=== PATIENT | male | born 1965 | race Caucasian/White ===

== ENCOUNTER 2024-07-30 10:36 | Inpatient (IN) | payer OTHER ==
[~2024-07-30] VITALS: Ht 170.2 cm; Wt 52.3 kg
[~2024-07-30 10:36] MED LIST: AMIN30LI66 GT; MULT9LIQ9 GT; VIT500LI GT
[2024-07-30 11:13] LABS: BASOPHILS % (AUTO) 0.2 % (0.0-2.0); EOSINOPHILS % (AUTO) 0.4 % (0.0-6.0); HEMATOCRIT 33 % (39-51); HEMOGLOBIN 11.4 g/dL (13.5-17.5); LYMPHOCYTES # (AUTO) 1.6 K/uL (0.8-4.8); LYMPHOCYTES % (AUTO) 27.2 % (20.0-44.0); MEAN CORPUSCULAR HEMOGLOBIN 33 PG (26.0-33.0); MEAN CORPUSCULAR HGB CONC 35 g/dl (31.0-36.0); MEAN CORPUSCULAR VOLUME 96 fL (80-96); MONOCYTES # (AUTO) 0.4 K/uL (0.1-1.30); MONOCYTES % (AUTO) 6.4 % (2.0-12.0); NEUTROPHILS # (AUTO) 3.8 K/uL (1.8-8.9); NEUTROPHILS % (AUTO) 65.8 % (43.0-81.0); PLATELET COUNT (AUTO) 162 K/uL (150-450); RED BLOOD CELL COUNT(AUTO) 3.45 MIL/uL (4.5-6.0); RED CELL DISTRIBUTION WIDTH 13.3 % (11.5-15.0); WHITE BLOOD COUNT (AUTO) 5.8 K/uL (4.3-11.0)
[2024-07-30 11:15] LABS: CALCIUM, SERUM 10.2 mg/dL (8.5-10.1); CREATININE 0.6 mg/dL (0.6-1.3); POTASSIUM 4.4 mmol/L (3.5-5.1)
[2024-07-30 11:29] LABS: INR 1.14 (0.91-1.10); PARTIAL THROMBOPLASTIN TIME 26.8 SEC (24.3-34.3)
[2024-07-30] MEDS ORDERED: Z GUARD REMEDY 4 OZ OINT TP PRN (13:30)
[2024-07-30] MEDS ORDERED: ACETAMINOPHEN 325 MG TABLET PO PRN (13:30)
[2024-07-30] MEDS ORDERED: MAGNESIUM HYDROXIDE 30 ML UDC PO PRN (13:30)
[2024-07-30] MEDS ORDERED: MAG HYDROX/AL HYDROX/SIMETH 30 ML UDC PO PRN (13:30)
[2024-07-30] MEDS ORDERED: ONDANSETRON HCL/PF 4 MG/2 ML VIAL IVP PRN (13:30)
[2024-07-30] MEDS ORDERED: LEVE500S9 GT (13:55)
[2024-07-30] MEDS ORDERED: ALBU2.5V38 NEB ×2 (13:55)
[2024-07-30] MEDS ORDERED: BISA10SU11 RC (13:55)
[2024-07-30] MEDS ORDERED: MAGN400O6 GT (13:55)
[2024-07-30] MEDS ORDERED: NUTR250L58 GT (13:55)
[2024-07-30] MEDS ORDERED: SENN8.6T19 GT (13:55)
[2024-07-30] MEDS ORDERED: POLY15DR31 EACHEYE (13:55)
[2024-07-30] MEDS ORDERED: ACET160S GT (13:55)
[2024-07-30] MEDS ORDERED: DOCU100C36 GT (13:55)
[2024-07-30] MEDS ORDERED: CHLO473M5 PO (13:55)
[2024-07-30] MEDS ORDERED: LORA-258 GT (13:55)
[2024-07-30] MEDS ORDERED: ACET160L44 GT (13:55)
[2024-07-30] MEDS ORDERED: PANT40SU2 GT (13:55)
[2024-07-30] MEDS ORDERED: HYDR-4303 GT (13:55)
[2024-07-30] MEDS ORDERED: QUET100T GT (13:55)
[2024-07-30] MEDS: VITAL AF 1.2 1,000 ML BOTTLE GT PRN (15:37)
[2024-07-30 15:45] VITALS: BP 114/63; TEMP 98.7; O2SAT 95
[2024-07-30] MEDS ORDERED: BISACODYL SUPP (10 MG) 10 MG/SUPP.RECT SUPP.RECT RC PRN (19:30)
[2024-07-30] MEDS ORDERED: DOCUSATE SODIUM 100 MG CAPSULE PO SCH (19:30)
[2024-07-30] MEDS ORDERED: POLYVINYL ALCOHOL 15 ML BOTTLE EACHEYE PRN (19:30)
[2024-07-30] MEDS ORDERED: ACETAMINOPHEN 650 MG/20.3 ML UDC GT PRN ×3 (19:30→20:00)
[2024-07-30] MEDS ORDERED: LORAZEPAM 0.5 MG TABLET GT PRN (19:30)
[2024-07-30] MEDS ORDERED: HYDROCODONE/APAP 5/325MG TABLET GT PRN (19:30)
[2024-07-30] MEDS ORDERED: MAG HYDROX/AL HYDROX/SIMETH 30 ML UDC GT PRN (19:32)
[2024-07-30] MEDS ORDERED: MAGNESIUM HYDROXIDE 30 ML UDC GT PRN (19:32)
[2024-07-30] MEDS: LEVETIRACETAM SOL (5 ML) 100 MG/ML UDC GT SCH (19:53)
[2024-07-30] MEDS: ASCORBIC ACID 500 MG TABLET GT SCH (19:53)
[2024-07-30] MEDS: MULTIVIT W/MINERALS 1 TAB TABLET GT SCH (19:53)
[2024-07-30] MEDS: ALBUTEROL FS 2.5 MG/3 ML VIAL.NEB NEB SCH (19:55)
[2024-07-30 19:57] VITALS: O2SAT 95
[2024-07-30 20:00] VITALS: BP 114/79; TEMP 98.4; O2SAT 97
[2024-07-30 20:12] VITALS: O2SAT 97
[2024-07-30] MEDS: PROSOURCE / PROSTAT (PYXIS) 30 ML UDC GT SCH (20:33)
[2024-07-30] MEDS: CHLORHEXIDINE GLUCONATE 15 ML UDC MM SCH (21:22)
[2024-07-30] MEDS: QUETIAPINE FUMARATE 100 MG TABLET GT SCH (21:22)
[2024-07-30] MEDS: SENNOSIDES 8.6 MG TABLET GT SCH (21:22)
[2024-07-30 21:26] VITALS: O2SAT 97
[2024-07-31 06:20] LABS: BASOPHILS % (AUTO) 0.2 % (0.0-2.0); EOSINOPHILS % (AUTO) 0.7 % (0.0-6.0); HEMATOCRIT 31 % (39-51); HEMOGLOBIN 10.5 g/dL (13.5-17.5); LYMPHOCYTES # (AUTO) 1.7 K/uL (0.8-4.8); LYMPHOCYTES % (AUTO) 30.7 % (20.0-44.0); MEAN CORPUSCULAR HEMOGLOBIN 33 PG (26.0-33.0); MEAN CORPUSCULAR HGB CONC 34 g/dl (31.0-36.0); MEAN CORPUSCULAR VOLUME 95 fL (80-96); MONOCYTES # (AUTO) 0.5 K/uL (0.1-1.30); MONOCYTES % (AUTO) 9.8 % (2.0-12.0); NEUTROPHILS # (AUTO) 3.2 K/uL (1.8-8.9); NEUTROPHILS % (AUTO) 58.6 % (43.0-81.0); PLATELET COUNT (AUTO) 153 K/uL (150-450); RED BLOOD CELL COUNT(AUTO) 3.24 MIL/uL (4.5-6.0); RED CELL DISTRIBUTION WIDTH 13.5 % (11.5-15.0); WHITE BLOOD COUNT (AUTO) 5.5 K/uL (4.3-11.0)
[2024-07-31 06:37] LABS: CALCIUM, SERUM 10.9 mg/dL (8.5-10.1); CREATININE 0.6 mg/dL (0.6-1.3); MAGNESIUM 1.5 mg/dL (1.8-2.4); PHOSPHORUS 3.3 mg/dL (2.5-4.9); POTASSIUM 3.7 mmol/L (3.5-5.1)
[2024-07-31] MEDS: PANTOPRAZOLE 40 MG/PACK PACK GT SCH (07:43)
[2024-07-31 07:47] VITALS: O2SAT 96
[2024-07-31 07:59] VITALS: O2SAT 98
[2024-07-31 08:00] VITALS: BP 116/95; TEMP 98.2; O2SAT 99
[2024-07-31] MEDS: DOCUSATE SODIUM LIQ 100 MG/10 ML UDC GT SCH (09:06)
[2024-07-31] MEDS: MAGNESIUM OXIDE 400 MG TABLET PO ONE (10:17)
[2024-07-31] MEDS: NEOMY SULF/BACITRAC ZN/POLY 15 GM TUBE TP SCH (10:18)
[2024-07-31 14:07] VITALS: O2SAT 98
[2024-07-31 14:15] VITALS: O2SAT 99
== END 2024-07-31 15:15 | DRG 384 ==
LOC: ER 10:40 → MED 14:41
PROVIDERS: ADMIT Nurse Practitioner Family; ATTEND Nurse Practitioner Family
DX: S01.01XA Laceration without foreign body of scalp, initial encounter (principal); J96.90 Respiratory failure, unspecified, unspecified whether with hypoxia or hypercapnia; D63.8 Anemia in other chronic diseases classified elsewhere; Z93.0 Tracheostomy status; S01.112A Laceration without foreign body of left eyelid and periocular area, initial encounter; W06.XXXA Fall from bed, initial encounter; Z93.1 Gastrostomy status; R13.10 Dysphagia, unspecified; Z87.820 Personal history of traumatic brain injury; R73.9 Hyperglycemia, unspecified; Y93.9 Activity, unspecified; Y92.129 Unspecified place in nursing home as the place of occurrence of the external cause
CPT/HCPCS: 36415; 70450-TC; 71045-TC; 72170-TC; 73502; 80048-TC; 83735-TC; 84100-TC; 85025-TC; 85730-TC; 86850-TC; 87081-TC; 94761-TC; 94799-TC; 97110-TC; 97116-TC; 97530-TC; A4623; A6403; G0378; J1953